=== PATIENT | female | born 2000 | race Caucasian/White ===

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

== ENCOUNTER 2020-12-11 15:27 | Inpatient (IN) ==
[2020-12-11 13:59] LABS: Bilirubin,Urine Negative (Negative); Blood,Urine Negative (Negative); Clarity,Urine Clear (Clear); Color,Urine Colorless (Yellow); Glucose,Urine (UA) 30 mg/dL (Normal); Ketones,Urine Negative (Negative); Leukocyte Esterase,Urine Negative (Negative); Nitrite,Urine Negative (Negative); Protein,Urine Negative (Neg-Trace); Specific Gravity,Urine < 1.005 (1.010-1.025); Urobilinogen,Urine Normal (Normal)
[2020-12-11 14:18] LABS: Mucus,Urine Few per lpf (None-Few); RBC,Urine 0-3 per hpf (0-3); Squamous Epithelial Cell,Urine Few per hpf (None-Few); WBC,Urine 0-3 per hpf (0-3)
[~2020-12-11 15:27] MED LIST changes: +Betamethasone Acet/SodPhos 30 MG/5 ML VIAL IM SCH; -Betamethasone Acet/SodPhos 6 MG/ML MDV IM SCH; +Famotidine 20 MG/2 ML VIAL IVP PRN; +Lidocaine 1% 20 ML MDV INFILT PRN; +Metoclopramide 10 MG/2 ML VIAL IVP PRN; +NIFEdipine Immed Rel 10 MG CAPSULE PO ONE; +Naloxone 0.4 MG/ML INJ IVP PRN; +Ondansetron 4 MG/2 ML VIAL IVP PRN; -Ringers Solution, Lactated 1,000 ML ONE
[2020-12-11 15:53] LABS: Basophils # 0.1 K/mcL (0.0-0.2); Basophils % 0.6 %; Eosinophils % 0.2 %; Hematocrit 31.7 % (35.3-44.9); Hemoglobin 10.6 g/dL (11.5-15.4); Immature Granulocytes % 2.7 % (0-4); Lymphocytes # 1.6 K/mcL (0.6-4.6); Lymphocytes % 14.9 %; Mean Corpuscular HGB Conc 33.4 g/dL (31.6-35.5); Mean Corpuscular Hemoglobin 29.4 pg (28.0-33.3); Mean Corpuscular Volume 88.1 fL (83.0-100.0); Mean Platelet Volume 11.5 fL (9.4-12.4); Monocytes # 0.6 K/mcL (0.0-1.3); Monocytes % 5.2 %; Neutrophils # 8.2 K/mcL (1.6-8.9); Platelet Count 203 K/mcL (140-400); Red Cell Distribution Width 12.5 % (11.5-14.5); Segmented Neutrophils % 76.4 %; White Blood Count 10.7 K/mcL (4.3-11.1)
[2020-12-11 16:00] LABS: Amphetamine Screen,Urine Negative ng/mL (Cutoff=1000); Barbiturate Screen,Urine Negative ng/mL (Cutoff=200); Benzodiazepines Screen,Urine Negative ng/mL (Cutoff=200); Cannabinoid Screen,Urine Negative ng/mL (Cutoff = 50); Cocaine Screen,Urine Negative ng/mL (Cutoff= 300); Opiate Screen,Urine Negative ng/mL (Cutoff=300); Phencyclidine Screen,Urine Negative ng/mL (Cutoff=25)
[2020-12-11 16:51] LABS: Influenza A PCR Negative (Negative); Influenza B PCR Negative (Negative); Resp. Syncytial Virus PCR Negative (Negative)
[2020-12-11 16:52] LABS: SARS-CoV-2 by PCR (In House) Negative (Negative)
[2020-12-11] MEDS ORDERED: NIFEdipine Immed Rel 10 MG CAPSULE PO SCH (21:00)
[2020-12-11] MEDS ORDERED: Ondansetron 4 MG/2 ML VIAL IVP PRN (22:24)
[2020-12-11] MEDS ORDERED: Ringers Solution, Lactated 1,000 ML IVC SCH (22:24)
[2020-12-12] MEDS: NIFEdipine Immed Rel 10 MG CAPSULE PO SCH ×3 (02:48→15:10)
[2020-12-12 09:08] VITALS: BP 110/68; PULSE 101; TEMP 98.1; O2SAT 98
[2020-12-12] MEDS ORDERED: Betamethasone Acet/SodPhos 30 MG/5 ML VIAL IM SCH (14:45)
== END 2020-12-12 15:19 | disposition home or self-care (01) | DRG 566 ==
LOC: 1NENULAB → 1NENUPED 22:24
PROVIDERS: ADMIT Advanced Practice Midwife; ATTEND Advanced Practice Midwife

== ENCOUNTER → 2021-01-03 14:28 | Observation (INO) ==
[2021-01-03 13:07] LABS: Bacteria,Urine Few per hpf (None-Few); Bilirubin,Urine Negative (Negative); Blood,Urine Negative (Negative); Clarity,Urine Turbid (Clear); Color,Urine Light-Yellow (Yellow); Glucose,Urine (UA) 70 mg/dL (Normal); Ketones,Urine Negative (Negative); Leukocyte Esterase,Urine Negative (Negative); Nitrite,Urine Negative (Negative); Protein,Urine Negative (Neg-Trace); RBC,Urine 0-3 per hpf (0-3); Specific Gravity,Urine 1.007 (1.010-1.025); Squamous Epithelial Cell,Urine Few per hpf (None-Few); Urobilinogen,Urine Normal (Normal); WBC,Urine 0-3 per hpf (0-3)
== END | disposition home or self-care (01) ==
LOC: 1NENULAB
PROVIDERS: ADMIT Advanced Practice Midwife; ATTEND Advanced Practice Midwife

== ENCOUNTER 2021-01-16 00:21 | Inpatient (IN) ==
[2021-01-16] MEDS ORDERED: *HR* Nalbuphine 10 MG/ML AMPUL IV PRN (01:34)
[2021-01-16] MEDS ORDERED: Metoclopramide 10 MG/2 ML VIAL IVP PRN (01:34)
[2021-01-16] MEDS ORDERED: Ondansetron 4 MG/2 ML VIAL IVP PRN (01:34)
[2021-01-16] MEDS ORDERED: Naloxone 0.4 MG/ML INJ IVP PRN (01:34)
[2021-01-16] MEDS ORDERED: Famotidine 20 MG/2 ML VIAL IVP PRN (01:34)
[2021-01-16] MEDS ORDERED: Oxytocin 20 units/ LR 1000 mL 20 UNIT/1,000 ML BAG IVC SCH ×2 (01:45→15:14)
[2021-01-16] MEDS ORDERED: Ringers Solution, Lactated 1,000 ML IVC SCH (01:45)
[2021-01-16 02:15] LABS: Amphetamine Screen,Urine Negative ng/mL (Cutoff=1000); Barbiturate Screen,Urine Negative ng/mL (Cutoff=200); Benzodiazepines Screen,Urine Negative ng/mL (Cutoff=200); Cannabinoid Screen,Urine Negative ng/mL (Cutoff = 50); Cocaine Screen,Urine Negative ng/mL (Cutoff= 300); Opiate Screen,Urine Negative ng/mL (Cutoff=300); Phencyclidine Screen,Urine Negative ng/mL (Cutoff=25)
[2021-01-16 02:16] LABS: Basophils # 0.1 K/mcL (0.0-0.2); Basophils % 0.5 %; Eosinophils % 0.3 %; Hematocrit 34.9 % (35.3-44.9); Hemoglobin 11.3 g/dL (11.5-15.4); Immature Granulocytes % 1.5 % (0-4); Lymphocytes # 2.1 K/mcL (0.6-4.6); Lymphocytes % 20.7 %; Mean Corpuscular HGB Conc 32.4 g/dL (31.6-35.5); Mean Corpuscular Hemoglobin 27.8 pg (28.0-33.3); Mean Platelet Volume 11.9 fL (9.4-12.4); Monocytes # 0.7 K/mcL (0.0-1.3); Monocytes % 7.2 %; Neutrophils # 7.1 K/mcL (1.6-8.9); Platelet Count 215 K/mcL (140-400); Red Blood Count 4.06 M/mcL (3.82-4.97); Red Cell Distribution Width 13.4 % (11.5-14.5); Segmented Neutrophils % 69.8 %; White Blood Count 10.2 K/mcL (4.3-11.1)
[2021-01-16 02:36] LABS: Influenza A PCR Negative (Negative); Influenza B PCR Negative (Negative); Resp. Syncytial Virus PCR Negative (Negative)
[2021-01-16 02:39] LABS: SARS-CoV-2 by PCR (In House) Negative (Negative)
[2021-01-16] MEDS ORDERED: Epidural Premix (fent/bupiv) 110 ML EP ONE (04:12)
[2021-01-16] MEDS ORDERED: *HR* FentaNYL (PF) 100 MCG/2 ML VIAL ONE (04:15)
[2021-01-16] MEDS ORDERED: Ropivacaine/PF 0.2% 20 ML VIAL ONE (04:15)
[2021-01-16] MEDS ORDERED: EPHEDrine 50 MG/ML VIAL IVP PRN (04:40)
[2021-01-16] MEDS ORDERED: Epidural Premix (fent/bupiv) 110 ML EP SCH (04:45)
[2021-01-16] MEDS ORDERED: Lanolin 7 G OINT...G. TP PRN (15:14)
[2021-01-16] MEDS ORDERED: Benzocaine/Menthol 56 GM AEROSOL SPRAY TP PRN (15:14)
[2021-01-16] MEDS ORDERED: Ondansetron ODT 4 MG TAB.RAPDIS SL PRN (15:14)
[2021-01-16] MEDS: Ibuprofen 600 MG TABLET PO SCH ×2 (20:08→23:30)
[2021-01-16] MEDS: Acetaminophen 325 MG TABLET PO SCH (21:00)
[2021-01-17] MEDS: Acetaminophen 325 MG TABLET PO SCH (03:00)
[2021-01-17 05:24] VITALS: O2SAT 99
[2021-01-17] MEDS: Ibuprofen 600 MG TABLET PO SCH (05:28)
[2021-01-17 08:46] VITALS: BP 102/70; PULSE 84; TEMP 98.1
[2021-01-17] MEDS ORDERED: Prenatal Vit/FA 1 EACH TABLET PO SCH (09:00)
== END 2021-01-17 12:08 | disposition home or self-care (01) | DRG 560 ==
LOC: 1NENULAB → OBSVTOIN 00:21 → 1NENULAB 04:28 → 1NENUOBS 10:48
PROVIDERS: ADMIT Advanced Practice Midwife; ATTEND Advanced Practice Midwife